=== PATIENT | male | born 1980 | race African-American/Black ===

== ENCOUNTER 2016-11-11 17:34 | Emergency (ER) | payer SELFPAY ==
--- NOTE | 2016-11-11 17:44 | Emergency Department Record ---
History of Present Illness - General Chief Complaint: Dizziness Stated Complaint: DIZZY Time Seen by Provider: 11/11/16 17:43 Source: Patient Mode of Arrival: EMS Limitations: No limitations - History of Present Illness Initial Comments: The patient is here due to not feeling well at work. He works in a very hot environment at [employer] and he feels like he got overheated. He was in the middle of his shift and began to feel weak and lightheaded. There was no reported CP, SOB, AP or back pain but he did have a mild SCHWARZ. Because of that 911 was called and the patient was brought to the ER. Presently he feels much better. MD Complaint: Dizziness, Lightheadedness Onset/Timin -: Hour(s) Timing: Sudden onset Description: Near-syncope History of Same: No History of Trauma: No Severity: Mild Improves With: Nothing Worsens With: Nothing Associated Symptoms: Syncope - Related Data Home Medications Medication Instructions Recorded Confirmed Last Taken No Home Med [NO HOME MEDS] 11/11/16 11/11/16 Unknown Allergies Allergy/AdvReac Type Severity Reaction Status Date / Time No Known Drug Allergies Allergy Verified 11/11/16 17:42 Travel Screening - Travel/Exposure Within Last 30 Days Have you traveled within the last 30 days?: No Review of Systems Constitutional: Denies: Chills, Fever Eyes: Denies: Eye discharge ENT: Denies: Congestion Respiratory: Denies: Cough, Dyspnea Past Medical History - SOCIAL HISTORY Smoking Status: Never smoker Alcohol Use: None Drug Use: None - RESPIRATORY Hx Respiratory Disorders: No - CARDIOVASCULAR Hx Cardio Disorders: No - NEURO Hx Neuro Disorders: No - GI Hx GI Disorders: No - Hx Genitourinary Disorders: No - ENDOCRINE Hx Endocrine Disorders: No - MUSCULOSKELETAL Hx Musculoskeletal Disorders: No - PSYCH Hx Psych Problems: No - HEMATOLOGY/ONCOLOGY Hx Hematology/Oncology Disorders: No Family Medical History Any Significant Family History?: No Physical Exam - General General Appearance: Alert, Oriented x3, Cooperative, No acute distress - Head Head exam: Atraumatic, Normocephalic, Normal inspection - Eye Eye exam: Normal appearance, PERRL - Neck Neck exam: Normal inspection, Full ROM. negative: Tenderness - Respiratory Respiratory exam: Normal lung sounds bilaterally. negative: Respiratory distress - Cardiovascular Cardiovascular Exam: Regular rate, Normal rhythm, Normal heart sounds - GI/Abdominal GI/Abdominal exam: Soft, Normal bowel sounds. negative: Tenderness - Extremities Extremities exam: Normal inspection, Full ROM, Normal capillary refill. negative: Tenderness - Neurological Neurological exam: Alert, Normal gait. negative: Abnormal gait, Motor sensory deficit Course Vital Signs 11/11/16 17:38 Temperature 98.5 F Pulse Rate 64 Respiratory 18 Rate Blood Pressure 160/114 Pulse Ox 98 - Reevaluation(s) Reevaluation #1: The patient is doing a little better at this time. His BP is still elevated and we did give him HCTZ. His care will be turned over to Dr. Phelps at 19:00 due to shift change. 11/11/16 19:00 Medical Decision Making - Data Complexity MDM Data: Labs Ordered and/or Reviewed, EKG Ordered and/or Reviewed - Lab Data Result diagrams: 11/11/16 17:45 11/11/16 17:45 - EKG Data -: EKG Interpreted by Me EKG: No Acute Changes (NSR with Early Repolarization changes. LVG by Voltage.) Disposition Forms: Patient Portal Access
[2016-11-11] MEDS ORDERED: 0.9 % SODIUM CHLORIDE 1,000 ML BAG IV ONE (17:46)
[2016-11-11] MEDS ORDERED: ACETAMINOPHEN 325 MG TAB PO ONE (17:46)
[2016-11-11 18:00] LABS: BASO % 0.2 % (0-6); GRAN % 76.2 % (47-80); HEMOGLOBIN 13.5 gm/dl (14.0-18.0); LYMPH % 13.1 % (16-45); MEAN CELL VOLUME 81.4 fl (81-97); MEAN CORPUSCULAR HGB CONC 32.1 g/dl (32-36); MEAN PLATELET VOLUME 12.3 fl (7.4-10.4); MONO % 8.5 % (0-9); PLATELET COUNT 238 K/uL (130-400); RED BLOOD COUNT 5.16 M/uL (4.40-5.70); RED CELL DISTRIBUTION WIDTH 13.7 % (11.5-14.5); WHITE BLOOD COUNT W/O DIFF 9.8 K/uL (4.2-12.2)
[2016-11-11 18:05] LABS: MEAN CORPUSCULAR HEMOGLOBIN 26.1 pg (27-33)
[2016-11-11 18:08] LABS: AMPHETAMINE SCREEN URINE NOT DETECTED; BARBITURATE SCREEN URINE NOT DETECTED; BENZODIAZEPINE SCREEN URINE NOT DETECTED; COCAINE SCREEN URINE NOT DETECTED; METHADONE SCREEN URINE NOT DETECTED; METHAMPHETAMINE SCREEN NOT DETECTED; OPIATE SCREEN URINE NOT DETECTED; OXYCODONE SCREEN URINE NOT DETECTED; PHENCYCLIDINE SCREEN URINE NOT DETECTED; PROPOXYPHENE SCREEN URINE NOT DETECTED; THC SCREEN URINE NOT DETECTED; TRICYCLIC ANTIDEPRESSANT SCRN NOT DETECTED
[2016-11-11 18:10] LABS: URINE APPEARANCE CLEAR; URINE BILIRUBIN NEGATIVE (NEGATIVE); URINE BLOOD NEGATIVE (NEGATIVE); URINE COLOR YELLOW; URINE GLUCOSE (UA) NEGATIVE (NEGATIVE); URINE KETONE NEGATIVE (NEGATIVE); URINE LEUKOCYTE ESTERASE NEGATIVE (NEGATIVE); URINE NITRITE NEGATIVE (NEGATIVE); URINE PROTEIN NEGATIVE (NEGATIVE); URINE UROBILINOGEN 0.2 E.U./dL (0.20 - 1.00)
[2016-11-11 18:12] LABS: ALB/GLOB RATIO 1.3 (1.1-1.8); ALBUMIN 3.7 gm/dL (3.5-5.0); ALKALINE PHOSPHATASE 164 U/L (38-126); ALT/SGPT 50 U/L (21-72); ANION GAP 6.2 (7-16); AST/SGOT 43 U/L (17-59); BILIRUBIN,TOTAL 0.65 mg/dL (0.2-1.3); BLOOD UREA NITROGEN 15 mg/dL (9-20); CARBON DIOXIDE 25.8 mmol/L (22-30); CREATININE 1.4 mg/dL (0.66-1.25); EST GLOMERULAR FILTRATION RATE > 60 ml/min; GLUCOSE,RANDOM 90 mg/dL (70-110); TOTAL PROTEIN 6.6 gm/dL (6.3-8.2)
[2016-11-11] MEDS ORDERED: HYDROCHLOROTHIAZIDE 25 MG TABLET PO ONE (18:28)
[2016-11-11] MEDS ORDERED: IBUPROFEN 400 MG TABLET PO ONE (18:32)
[2016-11-11] MEDS ORDERED: AMLODIPINE BESYLATE 5MG TAB PO STA (20:52)
--- NOTE | 2016-11-11 22:22 | Emergency Department Record ---
History of Present Illness - General Chief Complaint: Dizziness Stated Complaint: DIZZY Time Seen by Provider: 11/11/16 17:43 Source: Patient Mode of Arrival: EMS Limitations: No limitations - History of Present Illness Onset/Timin -: Hour(s) Timing: Sudden onset Description: Near-syncope History of Same: No History of Trauma: No Severity: Mild Improves With: Nothing Worsens With: Nothing Associated Symptoms: Syncope - Related Data Previous Rx's Medication Instructions Recorded Amlodipine Besylate [Norvasc] 5 mg PO DAILY #7 tab 11/11/16 Allergies Allergy/AdvReac Type Severity Reaction Status Date / Time No Known Drug Allergies Allergy Verified 11/11/16 17:42 Travel Screening - Travel/Exposure Within Last 30 Days Have you traveled within the last 30 days?: No Review of Systems Constitutional: Denies: Chills, Fever Eyes: Denies: Eye discharge ENT: Denies: Congestion Respiratory: Denies: Cough, Dyspnea Past Medical History - SOCIAL HISTORY Smoking Status: Never smoker Alcohol Use: None Drug Use: None - RESPIRATORY Hx Respiratory Disorders: No - CARDIOVASCULAR Hx Cardio Disorders: No - NEURO Hx Neuro Disorders: No - GI Hx GI Disorders: No - Hx Genitourinary Disorders: No - ENDOCRINE Hx Endocrine Disorders: No - MUSCULOSKELETAL Hx Musculoskeletal Disorders: No - PSYCH Hx Psych Problems: No - HEMATOLOGY/ONCOLOGY Hx Hematology/Oncology Disorders: No Family Medical History Any Significant Family History?: No Physical Exam - General Limitations: No limitations Course Vital Signs 11/11/16 11/11/16 11/11/16 17:38 20:03 21:52 Temperature 98.5 F 98.0 F Pulse Rate 64 Pulse Rate [ 63 59 L Pulse Ox Probe] Respiratory 18 18 18 Rate Blood Pressure 160/114 Blood Pressure 161/116 142/107 [Left Arm] Pulse Ox 98 100 100 - Reevaluation(s) Reevaluation #1: 11/11/16 22:16 pt feels much better. Medical Decision Making - Lab Data Result diagrams: 11/11/16 17:45 11/11/16 17:45 Lab Results 11/11/16 11/11/16 11/11/16 Range/Units 17:45 17:45 17:45 WBC 9.8 (4.2-12.2) K/uL RBC 5.16 (4.40-5.70) M/uL Hgb 13.5 L (14.0-18.0) gm/dl Hct 42.0 (42.0-52.0) % MCV 81.4 (81-97) fl MCH 26.1 L (27-33) pg MCHC 32.1 (32-36) g/dl RDW 13.7 (11.5-14.5) % Plt Count 238 (130-400) K/uL MPV 12.3 H (7.4-10.4) fl Gran % 76.2 (47-80) % Lymphocytes % 13.1 L (16-45) % Monocytes % 8.5 (0-9) % Eosinophils % 2.0 (0-6) % Basophils % 0.2 (0-6) % Sodium 138 (136-145) mmol/L Potassium 3.6 (3.5-5.1) mmol/L Chloride 106 (98-107) mmol/L Carbon Dioxide 25.8 (22-30) mmol/L Anion Gap 6.2 L (7-16) BUN 15 (9-20) mg/dL Creatinine 1.4 H (0.66-1.25) mg/dL Estimated GFR > 60 ml/min Random Glucose 90 (70-110) mg/dL Calcium 8.6 (8.5-10.1) mg/dL Total Bilirubin 0.65 (0.2-1.3) mg/dL AST 43 (17-59) U/L ALT 50 (21-72) U/L Alkaline Phosphatase 164 H (38-126) U/L Total Protein 6.6 (6.3-8.2) gm/dL Albumin 3.7 (3.5-5.0) gm/dL Globulin 2.9 (1.4-4.8) gm/dL Albumin/Globulin Ratio 1.3 (1.1-1.8) Urine Color Yellow Urine Appearance Clear Urine pH 6.5 (5.0-8.0) Ur Specific [place] 1.010 (1.002-1.030) Urine Protein Negative (NEGATIVE) Urine Glucose (UA) Negative (NEGATIVE) Urine Ketones Negative (NEGATIVE) Urine Blood Negative (NEGATIVE) Urine Nitrite Negative (NEGATIVE) Urine Bilirubin Negative (NEGATIVE) Urine Urobilinogen 0.2 (0.20 - 1.00) E.U./dL Ur Leukocyte Esterase Negative (NEGATIVE) Urine Opiates Screen Ur Oxycodone Screen Urine Methadone Screen Ur Propoxyphene Screen Ur Barbiturates Screen Tricyclics Screen Ur Phencyclidine Scrn Ur Amphetamine Screen U Methamphetamines Scrn U Benzodiazepines Scrn Urine Cocaine Screen U Marijuana (THC) Screen 11/11/16 Range/Units 17:45 WBC (4.2-12.2) K/uL RBC (4.40-5.70) M/uL Hgb (14.0-18.0) gm/dl Hct (42.0-52.0) % MCV (81-97) fl MCH (27-33) pg MCHC (32-36) g/dl RDW (11.5-14.5) % Plt Count (130-400) K/uL MPV (7.4-10.4) fl Gran % (47-80) % Lymphocytes % (16-45) % Monocytes % (0-9) % Eosinophils % (0-6) % Basophils % (0-6) % Sodium (136-145) mmol/L Potassium (3.5-5.1) mmol/L Chloride (98-107) mmol/L Carbon Dioxide (22-30) mmol/L Anion Gap (7-16) BUN (9-20) mg/dL Creatinine (0.66-1.25) mg/dL Estimated GFR ml/min Random Glucose (70-110) mg/dL Calcium (8.5-10.1) mg/dL Total Bilirubin (0.2-1.3) mg/dL AST (17-59) U/L ALT (21-72) U/L Alkaline Phosphatase (38-126) U/L Total Protein (6.3-8.2) gm/dL Albumin (3.5-5.0) gm/dL Globulin (1.4-4.8) gm/dL Albumin/Globulin Ratio (1.1-1.8) Urine Color Urine Appearance Urine pH (5.0-8.0) Ur Specific [place] (1.002-1.030) Urine Protein (NEGATIVE) Urine Glucose (UA) (NEGATIVE) Urine Ketones (NEGATIVE) Urine Blood (NEGATIVE) Urine Nitrite (NEGATIVE) Urine Bilirubin (NEGATIVE) Urine Urobilinogen (0.20 - 1.00) E.U./dL Ur Leukocyte Esterase (NEGATIVE) Urine Opiates Screen Not detected Ur Oxycodone Screen Not detected Urine Methadone Screen Not detected Ur Propoxyphene Screen Not detected Ur Barbiturates Screen Not detected Tricyclics Screen Not detected Ur Phencyclidine Scrn Not detected Ur Amphetamine Screen Not detected U Methamphetamines Scrn Not detected U Benzodiazepines Scrn Not detected Urine Cocaine Screen Not detected U Marijuana (THC) Screen Not detected Disposition Disposition: Discharge Clinical Impression: Dizziness Hypertension Qualifiers: Hypertension type: essential hypertension Qualified Code(s): I10 - Essential ( primary) hypertension Disposition: Home, Self-Care Condition: (1) Good Instructions: Dizziness (ED), Hypertension (ED), Low Sodium Diet (ED) Additional Instructions: follow up with family doctor this week without fail. return sooner if worse Prescriptions: Amlodipine Besylate [Norvasc] 5 mg PO DAILY #7 tab Forms: Patient Portal Access, Return to Work/School
[2016-11-12] MEDS ORDERED: AMLODIPINE BESYLATE 5MG TAB PO SCH (10:00)
== END 2016-11-11 22:39 | disposition home or self-care (01) ==
LOC: ER 17:34
DX: R42 Dizziness and giddiness (principal); I10 Essential (primary) hypertension; R51 Headache
CPT/HCPCS: 70450; 80053; 80305; 81003; 85025; 93005; 93010; 99284; J7030